=== PATIENT | male | born 1950 | race Caucasian/White ===

== ENCOUNTER 2020-09-26 16:06 | Emergency (ER) | payer OTHER, SELFPAY ==
[2020-09-26 16:31] VITALS: BP 177/81; PULSE 90; O2SAT 95
[2020-09-26 16:33] VITALS: BP 177/81; PULSE 89; RESP 18; TEMP 36.6; O2SAT 97; BMI 28.5
--- NOTE | 2020-09-26 16:47 | DI.RAD.S_ITS ---
PROCEDURE: XR HAND LT MIN 3V INDICATIONS: left hand vs nail TECHNIQUE: 3 views of the hand(s) acquired. COMPARISON: None. FINDINGS: Bones: No fractures or dislocations. Carpal bones are normally aligned. No suspicious bony lesions. Soft tissues: No suspicious soft tissue calcifications. No radiopaque foreign body. IMPRESSION: No acute osseous abnormality. No radiopaque foreign body. Dictated by: Maikol Grace M.D. on 09/26/2020 at 16:03 Approved by: Maikol Grace M.D. on 09/26/2020 at 16:04
[2020-09-26] MEDS: TET,DIPH,PERTUSS(ACELL),VAC/PF 0.5 ML SYRINGE IM (16:54)
[2020-09-26 19:45] VITALS: BP 178/94; PULSE 70; RESP 17; O2SAT 95; O2SAT 98
[2020-09-26 19:46] VITALS: BP 178/94; PULSE 72; O2SAT 99
--- NOTE | 2020-09-26 20:05 | ED_ITS ---
HPI - Wound/Laceration <CITLALY MilianBC - Last Filed: 09/26/20 20:09> General Chief Complaint: Wound/Laceration Stated Complaint: wound left hand from Magaly nail Time Seen by Provider: 09/26/20 16:29 Source: patient Mode of arrival: Ambulatory Limitations: no limitations History of Present Illness HPI narrative: The patient is a 7 0 year old male who denies pertinent medical history, nonsmoker who presents with a chief complaint of a wound to his left hand from a magaly nail. He states that he was throwing a piece of wood it is drive, when he got caught with the base of his left thumb on a magaly nail. Does not was last tetanus was. He washed out with hydrogen peroxide. States he has full range of motion, but he is very worried about tetanus or other infection. Related Data Allergies Allergy/AdvReac Type Severity Reaction Status Date / Time No Known Drug Allergies Allergy Verified 09/26/20 16:32 Patient History <MYLENE Milian - Last Filed: 09/26/20 20:09> Social History Smoking Status: Never smoker Smoking Status: Never smoker alcohol intake frequency: 3 or more drinks per day Alcohol type: beer Substance Use Type: does not use Exam <MYLENE Milian - Last Filed: 09/26/20 20:09> Narrative Exam Narrative: GENERAL: This is a well-nourished, well-developed patient, in no acute distress HEAD: Atraumatic. Normocephalic. No temporal or scalp tenderness. EYES: Pupils equal round and reactive. Extraocular motions intact. No scleral icterus. No injection or drainage. ENT: Nose without bleeding, purulent drainage or septal hematoma. Wearing a mask. Airway patent. NECK: Trachea midline. No JVD or lymphadenopathy. Supple, nontender, no meningeal signs. CARDIOVASCULAR: Regular rate and rhythm RESPIRATORY: Last no cough. No increased respiratory effort. No accessory muscle use. EXTREMITIES: Full range of motion noted left fingers, able to flex and extend, thumbs up thumbs down against resistance. Skin exam as noted. Capillary refill less than 2 seconds all fingers left hand. Positive left radial pulse. BACK: Nontender without deformity or crepitance. No flank tenderness. NEURO: AOx3. SKIN: Puncture wound to base of left 1st digit on palmar aspect, with 0.5 cm laceration associated. Oozing blood. No obvious muscle or tendon involvement. Initial Vital Signs Initial Vital Signs: Vital Signs Pulse Rate 90 09/26/20 16:31 Blood Pressure 177/81 H 09/26/20 16:31 Pulse Oximetry 95 09/26/20 16:31 <Esme Abernathy MD - Last Filed: 09/27/20 07:39> Initial Vital Signs Initial Vital Signs: Vital Signs Pulse Rate 90 09/26/20 16:31 Blood Pressure 177/81 H 09/26/20 16:31 Pulse Oximetry 95 09/26/20 16:31 Procedures <MYLENE Milian - Last Filed: 09/26/20 20:09> Laceration Repair Laceration 1: Site: hand Side (If applicable): left Size (cm): 0.5 Description: linear Depth: simple, single layer Pre-repair: wound explored, irrigated extensively and deep structures intact (Cleansed with beta sept) Skin layer closed with: steri-strips Scores <MYLENE Milian - Last Filed: 09/26/20 20:09> GCS Ernie coma scale eye opening: Spontaneous [place] coma scale verbal response: Orientated [place] coma scale motor response: Obey commands [place] coma scale total score: 15 Course <MYLENE Milian - Last Filed: 09/26/20 20:09> Orders Ordered: Discontinued Medications Diphtheria/Tetanus/Acell Pertussis (Tet,Diph,Pertuss(Acell),Vac/Pf 0.5 Ml Syringe) 0.5 ml IM .ONCE ONE Stop: 09/26/20 16:48 Last Admin: 09/26/20 16:54 Dose: 0.5 ml Documented by: MMINOR Vital Signs Vital signs: Vital Signs - 8 hr 09/26/20 16:31 09/26/20 16:33 09/26/20 19:45 Temperature 97.8 F Pulse Rate 90 89 70 Respiratory Rate 18 17 Blood Pressure 177/81 H 177/81 H 178/94 H Pulse Oximetry 95 97 98 09/26/20 19:46 Temperature Pulse Rate 72 Respiratory Rate Blood Pressure 178/94 H Pulse Oximetry 99 <Esme Abernathy MD - Last Filed: 09/27/20 07:39> Orders Ordered: Discontinued Medications Diphtheria/Tetanus/Acell Pertussis (Tet,Diph,Pertuss(Acell),Vac/Pf 0.5 Ml Syringe) 0.5 ml IM .ONCE ONE Stop: 09/26/20 16:48 Last Admin: 09/26/20 16:54 Dose: 0.5 ml Documented by: MMINOR Vital Signs Vital signs: Vital Signs - 8 hr 09/26/20 16:31 09/26/20 16:33 09/26/20 19:45 Temperature 97.8 F Pulse Rate 90 89 70 Respiratory Rate 18 17 Blood Pressure 177/81 H 177/81 H 178/94 H Pulse Oximetry 95 97 98 09/26/20 19:46 Temperature Pulse Rate 72 Respiratory Rate Blood Pressure 178/94 H Pulse Oximetry 99 MDM - Wound/Laceration <MYLENE Milian - Last Filed: 09/26/20 20:09> Imaging Data Extremity x-ray #1: Radiologist's Impression: [address] [place] [id number] ReportSigned Patient: Seven Lynch LMR#: [id number]: [id number]:[id number]/Sex: 70 / MDate of Service: 09/26/20Loc: EDAccession Number: [id number] Procedure: XR hand LT min 3V Ordering Provider: Maria Elena Viera PROCEDURE: XR HAND LT MIN 3V INDICATIONS: left hand vs nail TECHNIQUE: 3 views of the hand(s) acquired. COMPARISON: None. FINDINGS: Bones: No fractures or dislocations. Carpal bones are normally aligned. No suspicious bony lesions. Soft tissues: No suspicious soft tissue calcifications. No radiopaque foreign body. IMPRESSION: No acute osseous abnormality. No radiopaque foreign body. Dictated by: Maikol Grace M.D. on 09/26/2020 at 16:03 Approved by: Maikol Grace M.D. on 09/26/2020 at 16:04 [facility] Narrative Medical decision making narrative: Discussed at length with the patient that generally we do not close puncture wounds due to increased risk of infection. Given that there is a small tear along the puncture wound, that was closed with Steri-Strips after copious cleansing with beta steps. X-rays negative. Tetanus was updated. Discussed at length monitoring for signs and symptoms of infection such as extending redness etcetera. Recommended keeping his hand clean and dry to help prevent infection, as well as follow-up with primary care provider and/or [employer] [facility] [employer] Patient has no questions or concerns upon discharge and states understanding return precautions as well as follow-up care. Discharge Plan Departure Patient Disposition: Home Clinical Impression: Puncture wound of skin from metal nail Instructions: How to Care for a Laceration After Repair, DI for Laceration Repair-Skin Closure Strips, DI for Puncture Wound Activity Restrictions/Additional Instructions: Thank you for trusting us with your care today. As discussed, please monitor your wound for signs and symptoms of infection such as extending redness etcetera Please keep your hand clean and dry. Please come back to emergency department for any acute concerns. Today we updated your tetanus. As I discussed, your x-ray shows no acute fracture. This does not rule out a soft tissue injury such as a ligament or tendon injury. It is important that you follow up with primary care provider, especially if worsening or no improvement. There can be fractures that did not show up on initial x-ray. Stand Alone Forms: Work Release Note <Esme Abernathy MD - Last Filed: 09/27/20 07:39> Cosign ED Attending Cosignature Attestation: I was immediately available in the department for consultation throughout this patient's visit. I agree with documentation as above. Esme Abernathy MD
== END 2020-09-26 19:45 | disposition home or self-care (01) ==
PROVIDERS: Emergency Provider Nurse Practitioner Family
DX: S61.432A Puncture wound without foreign body of left hand, initial encounter (principal); W45.0XXA Nail entering through skin, initial encounter; Z23 Encounter for immunization; Y99.0 Civilian activity done for income or pay
CPT/HCPCS: 73130; 90471; 99283; 90715